=== PATIENT | female | born 1960 | race Caucasian/White ===

== ENCOUNTER 2016-06-07 20:24 | Emergency (ER) | payer MEDICARE, MEDICAID ==
[~2016-06-07] VITALS: Ht 170.2 cm; Wt 75.0 kg
[~2016-06-07 20:24] MED LIST: ATOR10TA69 PO; CALC667T5 PO; CINA30 PO; CLON0.2T PO; GABA-531 PO; IBUP-1509 PO; INSASP SUBCUT; INSU3INS6 SQ; NEPVIT PO; SEVE800T8 PO
[2016-06-07 23:05] LABS: BASOPHILS % 1.3 % (0.0-2.0); EOSINOPHILS % 1.8 % (0.0-5.0); HEMATOCRIT. 50.3 % (36.0-48.0); HEMOGLOBIN. 16.4 g/dL (12.0-16.0); LYMPHOCYTES % 37.2 % (20.0-50.0); MEAN CORPUSCULAR HEMOGLOBIN 32.3 pg (28.0-32.0); MEAN CORPUSCULAR HGB CONC 32.6 g/dL (31.0-37.0); MEAN CORPUSCULAR VOLUME 99.3 fL (81.0-99.0); MONOCYTES % 14.4 % (2.0-8.0); NEUTROPHILS % 45.3 % (40.0-76.0); PLATELET 136 x1000/uL (130-400); RED BLOOD CELL COUNT 5.07 mill/uL (4.2-5.4); RED CELL DISTRIBUTION WIDTH 16.1 % (11.6-14.6); WHITE BLOOD COUNT 7.6 x1000/uL (4.5-11.0)
[2016-06-07 23:08] LABS: CHLORIDE 96 mEq/L (98-107)
[2016-06-07 23:16] LABS: ALANINE AMINOTRANSFERASE 30 IU/L (13-61); ALBUMIN 3.9 g/dL (3.4-5.0); ANION GAP 12; C REACTIVE PROTEIN QUANT 1.3 mg/L (0.0-3.0); CALCIUM 9.1 mg/dL (8.5-10.1); CARBON DIOXIDE 39 mEq/L (21-32); INDEX HEMOLYSI 1 (1-3); INDEX ICTERIC 1 (1-4); INDEX LIPEMIC 1 (1-3); UREA NITROGEN BLOOD 47 mg/dL (7-21); eGFR 4 mL/min (>60)
[2016-06-08 00:06] VITALS: BP 147/92
== END 2016-06-08 00:40 | disposition home or self-care (01) ==
LOC: ER 22:36
DX: L97.519 Non-pressure chronic ulcer of other part of right foot with unspecified severity (principal); L03.032 Cellulitis of left toe; E11.9 Type 2 diabetes mellitus without complications; Z79.4 Long term (current) use of insulin; Z79.899 Other long term (current) drug therapy; Z99.2 Dependence on renal dialysis
CPT/HCPCS: 36415; 73630; 80053; 85025; 86140; 99285

== ENCOUNTER → 2017-01-06 | Outpatient (CLI) | payer MEDICARE, MEDICAID ==
[~2017-01-06] MED LIST changes: -IBUP-1509 PO; +IBUP-2028 PO
== END | disposition home or self-care (01) ==
LOC: RAD 13:34
PROVIDERS: ATTEND Internal Medicine Nephrology
DX: I70.292 Other atherosclerosis of native arteries of extremities, left leg (principal)
CPT/HCPCS: 73630

== ENCOUNTER → 2017-02-07 | Outpatient (CLI) | payer MEDICARE, MEDICAID | END | disposition home or self-care (01) | LOC: PVL 12:55 | PROVIDERS: ATTEND Internal Medicine Nephrology | DX: I77.9 Disorder of arteries and arterioles, unspecified (principal) | CPT/HCPCS: 93923 ==

== ENCOUNTER → 2017-03-04 | Outpatient (CLI) | payer MEDICARE, MEDICAID | END | disposition home or self-care (01) | LOC: RAD 09:59 | PROVIDERS: ATTEND Internal Medicine Nephrology | DX: Z01.89 Encounter for other specified special examinations (principal); R06.02 Shortness of breath | CPT/HCPCS: 71046 ==

== ENCOUNTER 2017-10-02 19:49 | Emergency (ER) | payer MEDICARE, MEDICAID ==
[~2017-10-02] VITALS: Ht 152.4 cm; Wt 79.0 kg
[2017-10-02 23:59] VITALS: BP 169/90
== END 2017-10-02 23:59 | disposition home or self-care (01) ==
LOC: ER 19:49
DX: M79.671 Pain in right foot (principal); I12.0 Hypertensive chronic kidney disease with stage 5 chronic kidney disease or end stage renal disease; E11.22 Type 2 diabetes mellitus with diabetic chronic kidney disease; N18.6 End stage renal disease; E78.00 Pure hypercholesterolemia, unspecified; Z99.2 Dependence on renal dialysis; Z79.4 Long term (current) use of insulin; Z79.899 Other long term (current) drug therapy
CPT/HCPCS: 99283

== ENCOUNTER 2019-09-17 15:03 | Emergency (ER) | payer MEDICARE, MEDICAID ==
[~2019-09-17] VITALS: Ht 162.6 cm; Wt 80.0 kg
[~2019-09-17 15:03] MED LIST changes: -CALC667T5 PO; +CALC667T6 PO
[2019-09-17 15:04] VITALS: BP 177/93
[2019-09-17] MEDS ORDERED: ACETAMINOPHEN 325MG TABLET PO ONE (17:00)
== END 2019-09-17 17:55 | disposition home or self-care (01) ==
LOC: ER 15:10
DX: S16.1XXA Strain of muscle, fascia and tendon at neck level, initial encounter (principal); I12.0 Hypertensive chronic kidney disease with stage 5 chronic kidney disease or end stage renal disease; E11.22 Type 2 diabetes mellitus with diabetic chronic kidney disease; N18.6 End stage renal disease; E78.00 Pure hypercholesterolemia, unspecified; Z90.49 Acquired absence of other specified parts of digestive tract; Z79.4 Long term (current) use of insulin; Z79.899 Other long term (current) drug therapy; Z99.2 Dependence on renal dialysis; X58.XXXA Exposure to other specified factors, initial encounter; Y93.89 Activity, other specified; Y92.89 Other specified places as the place of occurrence of the external cause; Y99.8 Other external cause status
CPT/HCPCS: 99282

== ENCOUNTER 2019-12-06 18:09 | Emergency (ER) | payer MEDICARE, MEDICAID ==
[~2019-12-06] VITALS: Ht 172.7 cm; Wt 75.0 kg
[2019-12-06 18:10] VITALS: BP 179/85
[2019-12-06] MEDS ORDERED: ACETAMINOPHEN 325MG TABLET PO ONE (19:00)
== END 2019-12-06 20:27 | disposition home or self-care (01) ==
LOC: ER 18:09
DX: M25.552 Pain in left hip (principal); E11.22 Type 2 diabetes mellitus with diabetic chronic kidney disease; I12.0 Hypertensive chronic kidney disease with stage 5 chronic kidney disease or end stage renal disease; N18.6 End stage renal disease; Z99.2 Dependence on renal dialysis; E78.00 Pure hypercholesterolemia, unspecified; Z90.49 Acquired absence of other specified parts of digestive tract; Z79.4 Long term (current) use of insulin; W10.8XXA Fall (on) (from) other stairs and steps, initial encounter; Y93.89 Activity, other specified; Y92.018 Other place in single-family (private) house as the place of occurrence of the external cause
CPT/HCPCS: 72170; 93005; 99283

== ENCOUNTER 2020-01-31 13:38 | Inpatient (IN) | payer MEDICARE, MEDICAID ==
[~2020-01-31] VITALS: Ht 172.7 cm; Wt 76.0 kg
[~2020-01-31 13:38] MED LIST changes: -GABA-531 PO; +GABA-532 PO
[2020-01-31] MEDS ORDERED: LABETALOL 5MG/ML SYR 20 MG/4 ML SYRINGE IV ONE (14:45)
[2020-01-31 15:12] LABS: BASOPHILS % 0.5 % (0.0-2.0); EOSINOPHILS % 1.3 % (0.0-5.0); HEMATOCRIT. 43.2 % (36.0-48.0); HEMOGLOBIN. 14.5 g/dL (12.0-16.0); LYMPHOCYTES % 28.7 % (20.0-50.0); MEAN CORPUSCULAR HEMOGLOBIN 32.7 pg (28.0-32.0); MEAN CORPUSCULAR VOLUME 97.4 fL (81.0-99.0); MEAN PLATELET VOLUME 9.4 fl (7.4-10.4); MONOCYTES % 11.4 % (2.0-8.0); NEUTROPHILS % 58.1 % (40.0-76.0); PLATELET 157 x1000/uL (130-400); RED BLOOD CELL COUNT 4.43 mill/uL (4.2-5.4); RED CELL DISTRIBUTION WIDTH 14.9 % (11.6-14.6)
[2020-01-31] MEDS ORDERED: PROPOFOL 10MG/ML 100ML 100 ML IV ONE (15:15)
[2020-01-31] MEDS ORDERED: MIDAZOLAM HCL 2 MG/2 ML VIAL IV ONE (15:15)
[2020-01-31 15:18] LABS: CHLORIDE 94 mEq/L (98-107)
[2020-01-31 15:23] LABS: ETHANOL BLOOD < 10 mg/dL
[2020-01-31] MEDS ORDERED: NICARDIPINE 50 MG in SODIUM CHLORIDE 0.9% 230 ML IV PRN (18:30)
[2020-01-31] MEDS ORDERED: MAGNESIUM 1 G PREMIX 100 ML IV ONE (19:00)
[2020-01-31] MEDS ORDERED: METOCLOPRAMIDE HCL 10MG/2ML VIAL IV ONE (19:00)
[2020-01-31] MEDS ORDERED: LABETALOL 5MG/ML SYR 20 MG/4 ML SYRINGE IV SCH (22:30)
[2020-02-01] MEDS ORDERED: ACETAMINOPHEN 325MG TABLET PO PRN (01:45)
[2020-02-01] MEDS ORDERED: DIPHENHYDRAMINE 50MG/ML VIAL IV PRN (01:45)
[2020-02-01] MEDS ORDERED: ONDANSETRON HCL 4MG/2ML INJ IV PRN (01:45)
[2020-02-01] MEDS ORDERED: ZOLPIDEM TARTRATE 5MG TABLET PO PRN (01:45)
[2020-02-01] MEDS ORDERED: DEXTROSE 50% WATER 50ML SYRINGE IV PRN (01:45)
[2020-02-01] MEDS ORDERED: CLONIDINE 0.1MG TABLET PO PRN (01:45)
[2020-02-01] MEDS ORDERED: MAGNESIUM/ALUMINUM HYDROXIDE/SIMETHICONE 30ML UDC PO PRN (01:45)
[2020-02-01] MEDS: SODIUM CHLORIDE 0.9% INJ 3ML FLUSH IVF SCH ×3 (06:13→22:00)
[2020-02-01] MEDS: INSULIN LISPRO 100 UNITS/ML SUBCUT SCH ×4 (06:14→21:00)
[2020-02-01] MEDS: BLOOD SUGAR DIAGNOSTIC STRIP TEST SCH ×4 (06:14→21:22)
[2020-02-01] MEDS: AMLODIPINE 10MG TABLET PO SCH ×2 (10:00→13:14)
[2020-02-01 11:40] VITALS: BP 178/86
[2020-02-01 12:00] VITALS: BP 178/86
[2020-02-01 12:56] VITALS: BP 175/81
[2020-02-01 15:40] VITALS: BP 136/68
[2020-02-01 20:00] VITALS: BP 135/70
[2020-02-01] MEDS ORDERED: AMLODIPINE 5MG TABLET PO SCH (21:00)
[2020-02-01] MEDS: ACETAMINOPHEN 325MG TABLET PO PRN (21:16)
[2020-02-01] MEDS: HYDRALAZINE HCL 50MG TABLET PO SCH (21:18)
[2020-02-02] MEDS: SODIUM CHLORIDE 0.9% INJ 3ML FLUSH IVF SCH ×2 (06:00→14:45)
[2020-02-02] MEDS: HYDRALAZINE HCL 50MG TABLET PO SCH ×2 (06:00→14:45)
[2020-02-02 07:22] LABS: BASOPHILS % 0.7 % (0.0-2.0); EOSINOPHILS % 2.7 % (0.0-5.0); HEMATOCRIT. 39.9 % (36.0-48.0); HEMOGLOBIN. 13.4 g/dL (12.0-16.0); LYMPHOCYTES % 37.3 % (20.0-50.0); MEAN CORPUSCULAR HEMOGLOBIN 32.7 pg (28.0-32.0); MEAN CORPUSCULAR VOLUME 97.6 fL (81.0-99.0); MEAN PLATELET VOLUME 9.8 fl (7.4-10.4); MONOCYTES % 13.5 % (2.0-8.0); NEUTROPHILS % 45.8 % (40.0-76.0); PLATELET 147 x1000/uL (130-400); RED BLOOD CELL COUNT 4.09 mill/uL (4.2-5.4); RED CELL DISTRIBUTION WIDTH 15.1 % (11.6-14.6)
[2020-02-02] MEDS: BLOOD SUGAR DIAGNOSTIC STRIP TEST SCH ×3 (07:35→17:21)
[2020-02-02] MEDS: INSULIN LISPRO 100 UNITS/ML SUBCUT SCH ×3 (07:50→17:22)
[2020-02-02 08:00] VITALS: BP 167/81
[2020-02-02] MEDS: ACETAMINOPHEN 325MG TABLET PO PRN (08:37)
[2020-02-02] MEDS ORDERED: LOSARTAN POTASSIUM 50 MG TABLET PO SCH (09:00)
[2020-02-02 11:55] VITALS: BP 146/83
[2020-02-02 16:00] VITALS: BP 146/72
[2020-02-02 17:08] VITALS: BP 140/89
== END 2020-02-02 18:10 | disposition home or self-care (01) | DRG 304 ==
LOC: ER 13:38 → MICUSO 19:10 → 6WST 02-01 08:39
PROVIDERS: ADMIT Internal Medicine; ATTEND Internal Medicine
PROC: 5A1D70Z Performance of Urinary Filtration, Intermittent, Less than 6 Hours Per Day (ICD-10-PCS; principal; 2020-02-02)
DX: I16.0 Hypertensive urgency (principal); N18.6 End stage renal disease; I12.0 Hypertensive chronic kidney disease with stage 5 chronic kidney disease or end stage renal disease; E11.22 Type 2 diabetes mellitus with diabetic chronic kidney disease; E78.00 Pure hypercholesterolemia, unspecified; F17.200 Nicotine dependence, unspecified, uncomplicated; Z82.49 Family history of ischemic heart disease and other diseases of the circulatory system; Z99.2 Dependence on renal dialysis; Z83.3 Family history of diabetes mellitus; Z79.4 Long term (current) use of insulin; Z79.899 Other long term (current) drug therapy; R51.9 Headache, unspecified
CPT/HCPCS: 36415; 70551; 71045; 80048; 80053; 80320; 82962; 83036; 85025; 93005; 96374; 99285; J1815; J2405; J2765; J3475; J3490; G0480